=== PATIENT | male | born 1955 | race Caucasian/White ===

== ENCOUNTER 2020-01-04 07:40 | Day surgery (SDC) | payer BC ==
[2020-01-03 15:11] VITALS: BMI 32.2
[2020-01-04 09:20] VITALS: TEMP 98.5
[2020-01-04 09:50] VITALS: BP 121/81; PULSE 71
--- NOTE | 2020-01-05 14:28 | PATH ---
Surgical Pathology Report Patient Name: ABNER NELSON [facility]. Rec. #: [id number] /Age/Gender: 1955 (Age: 64) / M Account: [id number] Location: U-ENDOSCOPY Taken: 01/04/2020 Received: 01/04/2020 Reported: 01/05/2020 Physicians: José Miguel Garvin M.D. Specimen(s) Received TRANSVERSE COLON POLYP Clinical History Screening, family history of colon cancer Postoperative diagnosis: Colon polyps, lipoma, diverticulosis Final Diagnosis TRANSVERSE COLON POLYP, POLYPECTOMY: TUBULAR ADENOMA. Electronically Signed Timothy Nascimento M.D. Gross Description Received in formalin, labeled "transverse colon polyp biopsy" are 2 rasheed, irregular portions of soft tissue measuring 0.1 and 0.3 cm. in greatest dimension. The specimens are submitted in toto in one cassette. 01/04/202001/04/2020
== END 2020-01-04 10:31 | disposition home or self-care (01) ==
LOC: JASU-ENDO 07:40
PROVIDERS: ATTEND Internal Medicine Gastroenterology
PROC: 0DBL8ZX Excision of Transverse Colon, Via Natural or Artificial Opening Endoscopic, Diagnostic (ICD-10-PCS; 2020-01-04)
PROC: 0DBN8ZX Excision of Sigmoid Colon, Via Natural or Artificial Opening Endoscopic, Diagnostic (ICD-10-PCS; principal; 2020-01-04 08:45)
DX: Z12.11 Encounter for screening for malignant neoplasm of colon (principal); Z80.0 Family history of malignant neoplasm of digestive organs; D12.3 Benign neoplasm of transverse colon; K57.30 Diverticulosis of large intestine without perforation or abscess without bleeding
CPT/HCPCS: 88305-TC

== ENCOUNTER 2021-02-21 01:44 | Inpatient (IN) | payer BC ==
[2021-02-21] MEDS ORDERED: KETOROLAC TROMETHAMINE 15 MG/ML VIAL IVPUSH ONE (02:27)
[2021-02-21] MEDS ORDERED: LACTATED RINGERS SOLUTION 1000 ML INFUS.BAG IV ONE (02:27)
[2021-02-21] MEDS ORDERED: ONDANSETRON 4 MG/2 ML VIAL IVPUSH ONE (02:28)
[2021-02-21] MEDS ORDERED: KETOROLAC TROMETHAMINE 15 MG/ML VIAL ONE (02:30)
[2021-02-21] MEDS ORDERED: ONDANSETRON 4 MG/2 ML VIAL ONE (02:31)
[2021-02-21 02:58] LABS: BASO % 0.3 % (0-2.0); EOS % 0.2 % (0-4.5); HEMATOCRIT 45.2 % (35.4-49); HEMOGLOBIN 15.3 GM/dL (11.7-16.9); LYMPH % 10.8 % (8-40); MCH 30.9 pg (25.7-33.7); MCHC 33.9 g/dl (32.0-35.9); MEAN CELL VOLUME 91.1 fl (80-96); MEAN PLT VOLUME 9.4 fl (7.5-11.1); MONO % 7.1 % (3.8-10.2); NEUT % 81.6 % (42.8-82.8); PLATELET COUNT 231 K/MM3 (134-434); RBC 4.97 M/mm3 (4.00-5.60); RDW 13.6 % (11.9-15.9); WHITE BLOOD COUNT 12.9 K/mm3 (4.0-10.0)
[2021-02-21 03:19] LABS: CALCIUM 10.4 mg/dL (8.5-10.1)
[2021-02-21 03:20] LABS: ALBUMIN 4.4 g/dl (3.4-5.0); BLOOD UREA NITROGEN 27.1 mg/dL (7-18)
[2021-02-21 03:23] LABS: CREATININE 1.4 mg/dL (0.55-1.3)
[2021-02-21 03:25] LABS: BILIRUBIN,TOTAL 0.5 mg/dL (0.2-1); TOT PROT 7.4 g/dl (6.4-8.2)
[2021-02-21 04:23] LABS: EPI CELLS 2 /uL (0-25.1); HYALINE CASTS 0 /uL (0-3.1); PH,URINE 6.5 (5.0-8.0); URINE APPEARANCE CLEAR; URINE BACTERIA 10 /uL (0-1359); URINE BILIRUBIN NEGATIVE (NEGATIVE); URINE COLOR YELLOW; URINE GLUCOSE (UA) NEGATIVE (NEGATIVE); URINE KETONE 1+ (NEGATIVE); URINE LEUK ESTERASE NEGATIVE (NEGATIVE); URINE NITRITE NEGATIVE (NEGATIVE); URINE PROTEIN TRACE (NEGATIVE); URINE RBC 1149 /uL (0-23.9); URINE WBC 2 /uL (0-25.8)
[2021-02-21 04:35] LABS: INR 1.13 (0.83-1.09); PROTHROMBIN TIME (PATIENT) 13.8 SEC (9.7-13.0)
[2021-02-21] MEDS ORDERED: CEFTRIAXONE 1 GM in DEXTROSE 5%-WATER - 100 ML IVPB ONE (04:35)
[2021-02-21 04:37] LABS: ACTIVATED PTT 36.5 SECONDS (25.2-36.5)
[2021-02-21] MEDS ORDERED: MORPHINE SULFATE 2 MG/ML VIAL IVPUSH PRN (05:06)
[2021-02-21] MEDS ORDERED: CEFTRIAXONE 1 GM/50 ML BAG ONE ×2 (05:12→09:08)
[2021-02-21] MEDS ORDERED: SODIUM CHLORIDE 1,000 ML IV SCH (05:15)
[2021-02-21] MEDS ORDERED: ACETAMINOPHEN 1000 MG/100 ML VIAL (NON FORMULARY) IVPB PRN ×2 (07:46→13:54)
[2021-02-21] MEDS ORDERED: TAMSULOSIN HCL 0.4 MG CAP ONE (08:02)
[2021-02-21] MEDS ORDERED: TAMSULOSIN HCL 0.4 MG CAP PO SCH (08:30)
[2021-02-21 09:43] VITALS: BMI 31.6
[2021-02-21] MEDS ORDERED: CEFTRIAXONE 1 GM in DEXTROSE 5%-WATER - 50 ML IVPB SCH (10:00)
[2021-02-21] MEDS ORDERED: PROPOFOL 20 ML ONE ×2 (12:51)
[2021-02-21] MEDS ORDERED: MIDAZOLAM HCL 2 MG/2 ML SINGLE DOSE VIAL ONE (12:51)
[2021-02-21] MEDS ORDERED: GENTAMICIN SO4 80 MG/2 ML VIAL IVPB ONE (13:05)
[2021-02-21] MEDS ORDERED: GENTAMICIN SO4 80 MG/2 ML VIAL ONE (13:14)
[2021-02-21] MEDS ORDERED: IOHEXOL 300 MG/ML INFUS..BTL IJ ONE (13:19)
[2021-02-21] MEDS ORDERED: DEXAMETHASONE SOD PHOSPHATE 4 MG/1 ML VIAL ONE (13:32)
[2021-02-21] MEDS: SODIUM CHLORIDE 1,000 ML IV SCH ×2 (15:00→18:27)
[2021-02-21] MEDS: MORPHINE SULFATE 2 MG/ML VIAL IVPUSH PRN (18:27)
[2021-02-22] MEDS: SODIUM CHLORIDE 1,000 ML IV SCH ×2 (02:27→14:43)
[2021-02-22] MEDS: MORPHINE SULFATE 2 MG/ML VIAL IVPUSH PRN ×2 (02:28→14:44)
[2021-02-22] MEDS ORDERED: TAMSULOSIN HCL 0.4 MG CAP PO SCH (08:30)
[2021-02-22 08:58] LABS: BASO % 0.3 % (0-2.0); EOS % 0.3 % (0-4.5); HEMATOCRIT 40.9 % (35.4-49); HEMOGLOBIN 14.2 GM/dL (11.7-16.9); LYMPH % 16.7 % (8-40); MCH 31.9 pg (25.7-33.7); MCHC 34.7 g/dl (32.0-35.9); MEAN PLT VOLUME 9.7 fl (7.5-11.1); MONO % 8.3 % (3.8-10.2); NEUT % 74.4 % (42.8-82.8); PLATELET COUNT 215 K/MM3 (134-434); RBC 4.45 M/mm3 (4.00-5.60); RDW 13.5 % (11.9-15.9); WHITE BLOOD COUNT 10.6 K/mm3 (4.0-10.0)
[2021-02-22] MEDS ORDERED: cefTRIAXone SODIUM 1 GM VIAL ONE (08:59)
[2021-02-22] MEDS ORDERED: DEXTROSE 5%-WATER - 50 ML IVPB ONE (08:59)
[2021-02-22 09:02] LABS: INR 1.11 (0.83-1.09); PROTHROMBIN TIME (PATIENT) 13.6 SEC (9.7-13.0)
[2021-02-22 09:23] LABS: BLOOD UREA NITROGEN 16.6 mg/dL (7-18); CALCIUM 9.3 mg/dL (8.5-10.1); MAGNESIUM 2.2 mg/dL (1.8-2.4)
[2021-02-22 09:26] LABS: CREATININE 0.7 mg/dL (0.55-1.3)
[2021-02-22 09:27] LABS: PHOSPHOROUS 3.3 mg/dL (2.5-4.9)
[2021-02-22 09:28] LABS: BILIRUBIN,TOTAL 0.5 mg/dL (0.2-1); TOT PROT 6.1 g/dl (6.4-8.2)
[2021-02-22 09:42] LABS: ALBUMIN 3.4 g/dl (3.4-5.0)
[2021-02-22] MEDS ORDERED: CEFTRIAXONE 1 GM in DEXTROSE 5%-WATER - 50 ML IVPB SCH (10:00)
[2021-02-22 15:20] VITALS: BP 126/75; PULSE 77; TEMP 98
== END 2021-02-22 17:18 | disposition home or self-care (01) | DRG 661 ==
LOC: JER 01:44 → JERBED 04:36 → J5S 11:06
PROVIDERS: ADMIT Hospitalist
PROC: 0T748DZ Dilation of Left Kidney Pelvis with Intraluminal Device, Via Natural or Artificial Opening Endoscopic (ICD-10-PCS; principal; 2021-02-21 14:00)
DX: N17.9 Acute kidney failure, unspecified (principal); N13.2 Hydronephrosis with renal and ureteral calculous obstruction; E83.52 Hypercalcemia; N40.0 Benign prostatic hyperplasia without lower urinary tract symptoms; E78.5 Hyperlipidemia, unspecified; R10.12 Left upper quadrant pain; M54.9 Dorsalgia, unspecified; Z85.828 Personal history of other malignant neoplasm of skin
CPT/HCPCS: 36415; 71045-TC-FY; 74176-TC; 80053; 81003; 82306; 82310; 83735; 83970; 84100; 85025; 85610; 85730; 86850; 86900; 86901; 87086; 93005; 93010; 94760; 99285-25; C9803; U0003; U0005

== ENCOUNTER 2021-03-02 04:44 | Day surgery (SDC) | payer BC ==
[2021-02-28 13:43] VITALS: BMI 29.5
[2021-03-02] MEDS ORDERED: MIDAZOLAM HCL 2 MG/2 ML SINGLE DOSE VIAL ONE ×2 (12:07→12:36)
[2021-03-02] MEDS ORDERED: PROPOFOL 20 ML ONE ×5 (12:08→12:36)
[2021-03-02] MEDS ORDERED: EPHEDRINE SULFATE/0.9% NACL/PF 50 MG/10 ML SYRINGE NR ONE (12:10)
[2021-03-02] MEDS ORDERED: SUCCINYLCHOLINE CHLORIDE 200 MG/10 ML SYRINGE ONE ×2 (12:36→13:06)
[2021-03-02] MEDS ORDERED: fentaNYL CITRATE 250 MCG/5 ML VIAL ONE (12:36)
[2021-03-02] MEDS ORDERED: ceFAZolin 2 GRAM PREMIX BAG IVPB ONE (12:40)
[2021-03-02] MEDS ORDERED: DEXAMETHASONE SOD PHOSPHATE 4 MG/1 ML VIAL ONE (12:51)
[2021-03-02] MEDS ORDERED: ceFAZolin SODIUM 1 GM VIAL ONE (12:51)
[2021-03-02] MEDS ORDERED: LIDOCAINE HCL 2% JELLY (5 ML/TUBE) ONE (12:51)
[2021-03-02] MEDS ORDERED: LIDOCAINE HCL/PF 2% SDV 5ML VIAL ONE (12:51)
[2021-03-02] MEDS ORDERED: oxyCODONE HCL 5 MG TABLET PO PRN (13:45)
[2021-03-02] MEDS ORDERED: LACTATED RINGERS SOLUTION 1,000 ML IV SCH (13:45)
[2021-03-02] MEDS ORDERED: ONDANSETRON 4 MG/2 ML VIAL IVPUSH PRN (13:45)
[2021-03-02 15:58] VITALS: BP 123/83; PULSE 80; TEMP 97.3
== END 2021-03-02 16:30 | disposition home or self-care (01) ==
LOC: JASU-SURG 04:44
PROVIDERS: ATTEND Urology
PROC: 0TF78ZZ Fragmentation in Left Ureter, Via Natural or Artificial Opening Endoscopic (ICD-10-PCS; principal; 2021-03-02 12:00)
PROC: 0T778DZ Dilation of Left Ureter with Intraluminal Device, Via Natural or Artificial Opening Endoscopic (ICD-10-PCS; 2021-03-02 12:00)
DX: N20.1 Calculus of ureter (principal)
CPT/HCPCS: 76000-TC-FY; 94760

== ENCOUNTER 2023-02-04 03:48 | Day surgery (SDC) | payer OTHER, BC ==
[2023-01-28 17:56] VITALS: BMI 29.5
[2023-02-04] MEDS ORDERED: MIDAZOLAM HCL 2 MG/2 ML SINGLE DOSE VIAL ONE (09:32)
[2023-02-04] MEDS ORDERED: PROPOFOL 20 ML ONE (09:32)
[2023-02-04 10:57] VITALS: RESP 20
[2023-02-04 14:18] VITALS: BP 119/82; PULSE 72; TEMP 98
== END 2023-02-04 12:15 | disposition home or self-care (01) ==
LOC: JASU-SURG 03:48
PROVIDERS: ATTEND Urology
PROC: 0TF3XZZ Fragmentation in Right Kidney Pelvis, External Approach (ICD-10-PCS; principal; 2023-02-04 09:15)
DX: N20.0 Calculus of kidney (principal)

== ENCOUNTER 2025-01-20 06:09 | Day surgery (SDC) | payer OTHER, BC ==
[2025-01-18 13:40] VITALS: BMI 30.2
[2025-01-20 07:12] VITALS: TEMP 98.7
[2025-01-20 08:36] VITALS: RESP 15
[2025-01-20 08:39] VITALS: BP 107/61; PULSE 65
== END 2025-01-20 09:23 | disposition home or self-care (01) ==
LOC: JASU-ENDO 06:09
PROVIDERS: ATTEND Internal Medicine Gastroenterology
PROC: 0DJD8ZZ Inspection of Lower Intestinal Tract, Via Natural or Artificial Opening Endoscopic (ICD-10-PCS; principal; 2025-01-20 07:30)
DX: Z12.11 Encounter for screening for malignant neoplasm of colon (principal); K57.30 Diverticulosis of large intestine without perforation or abscess without bleeding; Z86.0100 Personal history of colon polyps, unspecified

== ENCOUNTER 2025-02-15 06:14 | Day surgery (SDC) | payer OTHER, BC ==
[2025-02-10 12:47] VITALS: BMI 30.2
[2025-02-15 06:42] VITALS: RESP 18
[2025-02-15] MEDS ORDERED: MIDAZOLAM HCL 2 MG/2 ML SINGLE DOSE VIAL ONE (07:21)
[2025-02-15] MEDS ORDERED: ONDANSETRON 4 MG/2 ML VIAL ONE (07:38)
[2025-02-15 10:41] VITALS: BP 126/79; PULSE 76; TEMP 97.8
== END 2025-02-15 10:10 | disposition home or self-care (01) ==
LOC: JASU-SURG 06:14
PROVIDERS: ATTEND Urology
PROC: 0TF4XZZ Fragmentation in Left Kidney Pelvis, External Approach (ICD-10-PCS; principal; 2025-02-15 07:30)
DX: N20.0 Calculus of kidney (principal)